=== PATIENT | female | born 1990 | race Caucasian/White ===

== ENCOUNTER 2016-05-20 12:06 | Emergency (ER) | payer OTHER ==
[~2016-05-20] VITALS: Ht 160 cm; Wt 104.3 kg
[~2016-05-20 12:06] MED LIST: CYCLOBENZAPRINE10 M1 PO; MEDROL4 M2 PO; TRAMADOL HCL50 M1 PO; ZOFRAN ODT4 M1 PO
[2016-05-20] MEDS ORDERED: BIOTIN2500 MCG PO (12:48)
--- NOTE | 2016-05-20 12:48 | ED INFLUENZA/URI COMPLAINT ---
History of Present Illness General Chief Complaint: Upper Respiratory Sx/Fever Stated Complaint: URI Source: patient, old records Exam Limitations: no limitations Vital Signs & Intake/Output Vital Signs & Intake/Output Vital Signs Date Time Temp Pulse Resp B/P Pulse O2 O2 Flow FiO2 Ox Delivery Rate 05/20 1347 97.3 105 18 164/96 99 Room Air 05/20 1300 Room Air 05/20 1227 97.7 91 16 156/90 97 Room Air Allergies Coded Allergies: mushroom (HIVES 05/20/16) Uncoded Allergies: METALS (Severe, ILIA WITH C-SECT DEHISCENT 01/19/16) Reconcile Medications Amoxicillin 500 MG TABLET 1 TAB PO BID URI Biotin (Unknown Strength) CAPSULE (Unknown Dose) PO DAILY SUPPLEMENT ( Reported) Robitussin AC (Guaifenesin-Codeine Syrup) 200 MG-20 MG/10 ML LIQUID 10 ML PO Q6HR PRN COUGH Triage Note: 26 Y/O FEMALE C/O URI SYMPTOMS X 1 MONTH. STATES SHE HAS BEEN COUGHING WITH "YELLOW" SPUTUM. ALSO C/O INTERMITTENT FEVERS. REPORTS INTERMITTENT DECREASED APPETITE/PO INTAKE. AFEBRILE. Triage Nurses Notes Reviewed? yes Onset: Gradual Duration: week(s): (4), constant, waxing and waning Timing: recent history Severity: mild, moderate Severity Numbers: 5 Prior Episodes/Possible Cause: occassional episodes No Modifying Factors: none Associated Symptoms: nasal congestion, nasal drainage : No Patient currently breastfeeds: No HPI: 26-year-old female presents emergency room today for evaluation complaining of upper respiratory symptoms for the past 1 month. She's had a productive cough of yellow sputum and has been around multiple sick contacts at her [facility] with similar symptoms. She is also pulling to congestion and rhinorrhea and subjective fevers. She denies shortness of breath chest pain pain with inspiration. Pain nausea vomiting diarrhea. No sore throat no rashes to her skin. She's been using [id number] medications without improvement. She does not smoke. She has not sought care for the symptoms until today. There are no other modifying factors or associated symptoms otherwise. Patient's last menstrual cycle was April 14 she was scheduled to have her next cycle on May 12 (CJ JENKINS) Past History Travel History Traveled to [place] past 21 day No Medical History Any Pertinent Medical History? none Neurological: NONE EENT: NONE Cardiovascular: NONE Respiratory: NONE Gastrointestinal: NONE Hepatic: NONE Renal: NONE Musculoskeletal: chronic back pain, disk herniation Psychiatric: NONE Endocrine: NONE Blood Disorders: NONE Cancer(s): NONE PRODUCTION ASSISTANT/Reproductive: NONE Surgical History Surgical History: non-contributory Psychosocial History What is your primary language Swedish Tobacco Use: Never used Family History Hx Contributory? No (CJ JENKINS) Review of Systems Review of Systems Constitutional: Reports: see HPI. All Other Systems: Reviewed and Negative Comments Review of systems: See HPI, All other systems negative. Constitutional, no chills no fever, no malaise HEENT: No visual changes no sore throat congestion Cardiovascular: No chest pain , no palpitation Skin,no rashes, no change in skin Respiratory: No dyspnea cough no sputum GI: No nausea no vomiting, no diarrhea : No dysuria Muscle skeletal: No joint pain, no joint swelling, no back pain, no neck pain, Neurologic: No numbness no confusion, no headache Psych: No stress Heme/endocrine: No bruising no bleeding Immunology: No lymphadenopathy (CJ JENKINS) Physical Exam Physical Exam General Appearance: well developed/nourished, no apparent distress, alert, awake , comfortable Ears, Nose, Throat: moist mucous membrane, hearing grossly normal, Tympanic normal, pharynx normal, nasal congestion Comments: Well-developed well-nourished patient in no apparent distress. Head/Face: Atraumatic, no maxillary/frontal sinus tenderness, no facial swelling Eyes: PERRL, EOMI, no conjunctival injection. No nystagmus Ear:External auditory canal and Tympanic membranes clear, no erythema, no FB. Nose: atraumatic.Normal inspection: No bleeding, no septal hematoma Throat: Moist mucous membranes.Pharynx normal. No pharyngeal erythema/exudate seen. No stridor/drooling or assymetry. No swelling or edema. Neck: Supple, FROM Back: FROM Cardiovascular: Regular rate and rhythms no murmurs rubs Respiratory: Chest nontender.There were no bony deformities, no asymmetry. No respiratory distress. Patient speaking in full complete sentences. Breath sounds clear to auscultation bilaterally: NO W/R/R Extremities: full range of motion Neuro: Alert and oriented x3 Skin: Warm & dry;No appreciable rash on exposed skin Psych: Mood affect normal, normal memory normal judgment. Core Measures Severe Sepsis Present: No Septic Shock Present: No (CJ JENKINS) Progress Differential Diagnosis: influenza, otitis, pneumonia, pharyngitis, sinusitis, BRONCHITIS Plan of Care: Orders Procedure Date/time Status URINE 05/20 1308 Complete Laboratory Tests 05/20/16 1312: Urine Test POSITIVE Discussed with the patient her results. She denies any abdominal pain vaginal bleeding or discharge this is her fourth . The patient just moved to this area and does not have an coat joiner set up yet. Again the patient however denies any pain discussed with her given her symptoms need for supportive care Tylenol as needed. Prescription for amoxicillin and Robitussin with codeine were provided she will follow up with copper etcher on Monday she'll return anytime sooner with any concerns answered all of her questions they feel comfortable with this plan clear discharge (CJ JENKINS) Initial ED EKG: none (CJ JENKINS) Departure Departure Time of Disposition: 1335 Disposition: HOME OR SELF CARE Condition: Stable Clinical Impression Primary Impression: Bronchitis Secondary Impressions: Referrals: JAYA SHANNON,KENNY Rucker PATIENT HAS NO PRIMARY CARE DR (PCP/Family) Additional Instructions: Follow-up with your primary care physician. Robitussin with codeine for cough use caution as this may make you drowsy. Amoxicillin as directed return with any concerns. These prescriptions were sent to your pharmacy Follow-up with coat joiner Kenny López MD on Monday, return anytime sooner with any concerns: Abdominal pain vaginal bleeding discharge or any other concerns Departure Forms: Customer Survey General Discharge Information Prescriptions: Current Visit Scripts Amoxicillin 1 TAB PO BID #14 TAB Robitussin AC (Guaifenesin-Codeine Syrup) 10 ML PO Q6HR PRN COUGH #200 ML (CJ JENKINS) PA/POWER LINE INSTALLER Co-Sign Statement Statement: ED Attending supervision documentation- [] I saw and evaluated the patient. I have also reviewed all the pertinent lab results and diagnostic results. I agree with the findings and the plan of care as documented in the PA's/POWER LINE INSTALLER's documentation. [X] I have reviewed the ED Record and agree with the PA's/POWER LINE INSTALLER's documentation. [] Additions or exceptions (if any) to the PAs/POWER LINE INSTALLER's note and plan are summarized below: [] (BETSY SHARP DO)
[2016-05-20] MEDS ORDERED: AMOXICILLIN500 M3 PO ×2 (13:37→16:56)
[2016-05-20] MEDS ORDERED: GUAIFENESIN-COD10 ML PO ×3 (13:37→16:58)
[2016-05-20 13:47] VITALS: BP 164/96
== END 2016-05-20 13:53 ==
LOC: ERH 12:06
DX: O99.511 Diseases of the respiratory system complicating pregnancy, first trimester (principal); J40 Bronchitis, not specified as acute or chronic
CPT/HCPCS: 81025

== ENCOUNTER 2016-07-01 09:18 | Emergency (ER) | payer OTHER ==
[~2016-07-01] VITALS: Ht 160 cm; Wt 103.4 kg
[~2016-07-01 09:18] MED LIST changes: +AMOXICILLIN500 M3 PO; +BIOTIN2500 MCG PO; +GUAIFENESIN-COD10 ML PO
--- NOTE | 2016-07-01 09:42 | ED INFLUENZA/URI COMPLAINT ---
History of Present Illness General Chief Complaint: General Adult Stated Complaint: FLU LIKE SYMPTOMS Source: patient Exam Limitations: no limitations Vital Signs & Intake/Output Vital Signs & Intake/Output Vital Signs Date Time Temp Pulse Resp B/P Pulse O2 O2 Flow FiO2 Ox Delivery Rate 07/01 0924 97.7 96 20 126/86 98 Room Air Allergies Coded Allergies: mushroom (HIVES 05/20/16) Uncoded Allergies: METALS (Severe, ILIA WITH C-SECT DEHISCENT 01/19/16) Reconcile Medications Amoxicillin 500 MG TABLET 1 TAB PO BID URI Amoxicillin 500 MG TABLET 1 TAB PO BID uri Biotin (Unknown Strength) CAPSULE (Unknown Dose) PO DAILY SUPPLEMENT ( Reported) Ondansetron (Zofran Odt) 4 MG TAB.RAPDIS 1 TAB PO Q6 PRN NAUSEA Robitussin AC (Guaifenesin-Codeine Syrup) 200 MG-20 MG/10 ML LIQUID 10 ML PO Q6HR PRN COUGH Robitussin AC (Guaifenesin-Codeine Syrup) 200 MG-20 MG/10 ML LIQUID 10 ML PO Q6HR PRN COUGH Robitussin AC (Guaifenesin-Codeine Syrup) 200 MG-20 MG/10 ML LIQUID 10 ML PO Q6HR PRN COUGH Triage Note: PT STATES SHE IS 10 WEEKS AND NOW HAVING N/V/D BODYACHES, CHILLS SINCE LAST NIGHT. PT STATES A LITTLE ABDOMINAL PAIN. PT DENIES VAGINAL BLEEDING OR PROBLEMS WITH . LAST OB APPT WITH [facility] 06/22/16 Triage Nurses Notes Reviewed? yes Onset: Abrupt Duration: 12 HRS Timing: multiple episodes today Severity: severe Modifying Factors: Worsens With: eating. Associated Symptoms: ABDOMINAL PAIN, NAUSEA, VOMITING, DIARRHEA : Yes Patient currently breastfeeds: No HPI: This is a 26-year-old female at 10 weeks gestation presents to the chief complaint of nausea vomiting diarrhea that began last night. She states she was vomiting twice an hour. She had 4 episodes of diarrhea. Non-bilious nonbloody vomiting. No vaginal bleeding or discharge. Patient is really followed up with this and had a diagnosis of an intrauterine on ultrasound. Positive sick contacts at home with similar symptoms. 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 Denies any fever or chills. Denies any abdominal pain. Past History Travel History Traveled to [place] past 21 day No Medical History Any Pertinent Medical History? see below for history Neurological: NONE EENT: NONE Cardiovascular: NONE Respiratory: NONE Gastrointestinal: NONE Hepatic: NONE Renal: NONE Musculoskeletal: chronic back pain, disk herniation Psychiatric: NONE Endocrine: NONE Blood Disorders: NONE Cancer(s): NONE DIRECT OF REAL ESTATE/Reproductive: NONE Surgical History Surgical History: non-contributory Psychosocial History What is your primary language Uzbek Tobacco Use: Never used ETOH Use: denies use Illicit Drug Use: denies illicit drug use Family History Hx Contributory? No Review of Systems Review of Systems Constitutional: Denies: chills, fever. EENTM: Reports: no symptoms. Respiratory: Denies: cough, short of breath. Cardiovascular: Denies: chest pain. GI: Reports: diarrhea, nausea, vomiting. Denies: abdominal pain. Genitourinary: Reports: no symptoms. Musculoskeletal: Reports: no symptoms. Skin: Reports: no symptoms. Neurological/Psychological: Reports: no symptoms. Hematologic/Endocrine: Denies: bruising, bleeding, polyuria, polydipsia. Immunologic/Allergic: Denies: splenectomy. All Other Systems: Reviewed and Negative Physical Exam Physical Exam General Appearance: well developed/nourished, alert, awake, mild distress, obese Head: atraumatic, normal appearance Eyes: Bilateral: normal appearance, PERRL, EOMI. Ears, Nose, Throat: normal ENT inspection, moist mucous membrane Neck: normal inspection, supple, full range of motion Respiratory: normal breath sounds, chest non-tender, no respiratory distress Cardiovascular: regular rate/rhythm Peripheral Pulses: 2+ radial (R), 2+ radial (L) Gastrointestinal: normal bowel sounds, soft, non-tender Extremities: normal inspection, normal capillary refill, normal range of motion, no edema Neurologic/Psych: no motor/sensory deficits, awake, alert, oriented x 3 Skin: intact, normal color, warm/dry Core Measures Severe Sepsis Present: No Septic Shock Present: No Progress Differential Diagnosis: GASTROENTERITIS, HYPEREMESIS, HELADIO, DEHYDRATION Plan of Care: Orders Procedure Date/time Status RAPID VIRAL INFLUENZA A 07/01 950 Complete COMPREHENSIVE METABOLIC PANEL 07/01 948 Complete CBC WITHOUT DIFFERENTIAL 07/01 948 Complete ACETONE 07/01 948 Complete URINE 07/01 928 Complete URINALYSIS 07/01 928 Complete Current Medications Sig/Miguel Start time Last Medication Dose Stop Time Status Admin Sodium Chloride 1,000 ML BOLUS ONE 07/01 1115 AC (Normal Saline 0.9%) 07/01 1214 Laboratory Tests 07/01/16 1019: Anion Gap 11, Estimated GFR > 60, BUN/Creatinine Ratio 18.3, Glucose 79, Calcium 8.9, Total Bilirubin 0.4, AST 17, ALT 24, Alkaline Phosphatase 21, Total Protein 6.6, Albumin 3.7, Globulin 2.9, Albumin/Globulin Ratio 1.3, CBC w Diff NO MAN DIFF REQ, RBC 4.92, MCV 86.4, MCH 29.1, RDW 14.2, MPV 9.5, Gran % 88.9 H, Lymphocytes % 5.6 L, Monocytes % 4.0, Eosinophils % 1.5, Basophils % 0 L, Absolute Granulocytes 10.1 H, Absolute Lymphocytes 0.6 L, Absolute Monocytes 0.5, Absolute Eosinophils 0.2, Absolute Basophils 0, PUBS MCHC 33.7, Acetone Level NEGATIVE 07/01/16 0958: Urinalysis LIGHT H, Urine Color YEL, Urine Clarity HAZY H, Urine pH 8.0, Ur Specific [place] 1.015, Urine Protein TRACE H, Urine Ketones NEG, Urine Nitrite NEG, Urine Bilirubin NEG, Urine Urobilinogen 0.2, Ur Leukocyte Esterase NEG, Ur Microscopic SEDIMENT EXAMINED, Urine RBC 1-3, Urine WBC 1-3 H, Ur Epithelial Cells MOD H, Urine Mucus FEW, Urine Hemoglobin NEG, Urine Glucose NEG, Urine Test POSITIVE Microbiology 07/01 1015 NASOPHARYN: Influenza Virus A & B Rapid Smear - COMP Patient presents with acute nausea vomiting diarrhea, sick contacts at home with similar symptoms. She is currently 10 weeks gestation. No abdominal pain vaginal discharge or bleeding. Patient feeling better after IV fluids 3L, antiemetics. Tolerating PO well. She will follow up with her OBGyn doctor. (ABILIO SHANNON,ARIA) Initial ED EKG: normal intervals Departure Departure Disposition: HOME OR SELF CARE Condition: Stable Clinical Impression Primary Impression: Gastroenteritis Secondary Impressions: Referrals: PATIENT HAS NO PRIMARY CARE DR (PCP/Family) Additional Instructions: Take Zofran as needed for nausea. Clear liquids and advance your diet as tolerated. Please continue your vitamins and follow-up with her [employer] doctor. Return to the ER for any changing or worsening symptoms. Departure Forms: Customer Survey General Discharge Information Prescriptions: Current Visit Scripts Ondansetron (Zofran Odt) 1 TAB PO Q6 PRN NAUSEA #20 TAB
[2016-07-01 10:28] LABS: ABSOLUTE BASOPHIL COUNT 0 /CUMM (0.0-0.2); ABSOLUTE EOSINOPHIL COUNT 0.2 /CUMM (0.0-0.7); ABSOLUTE GRANULOCYTE CT 10.1 /CUMM (1.4-6.5); ABSOLUTE LYMPH COUNT 0.6 /CUMM (1.2-3.4); ABSOLUTE MONOCYTE COUNT 0.5 /CUMM (0.10-0.60); BASOPHIL % 0 % (0.0-2.0); EOSINOPHIL % 1.5 % (0-5); HEMATOCRIT 42.5 % (37-47); MEAN CORPUSCULAR HGB 29.1 PG (27.0-31.0); MEAN CORPUSCULAR HGB CONC 33.7 G/DL (33.0-37.0); MEAN CORPUSCULAR VOLUME 86.4 FL (81.0-99.0); MEAN PLATELET VOLUME 9.5 FL (7.4-10.4); PLATELET COUNT 149 /CUMM (130-400); RBC DISTRIBUTION WIDTH 14.2 % (11.5-14.5); RED BLOOD CELL CT 4.92 /CUMM (4.20-5.40); WHITE BLOOD CELL COUNT 11.4 /CUMM (4.8-10.8)
[2016-07-01 10:41] LABS: GRANULOCYTE % 88.9 % (42.2-75.2)
[2016-07-01] MEDS ORDERED: ZOFRAN ODT4 M1 PO (11:45)
[2016-07-01 12:11] VITALS: BP 118/72
== END 2016-07-01 12:12 ==
LOC: ERH 09:18
PROVIDERS: Emergency Medicine
DX: O99.611 Diseases of the digestive system complicating pregnancy, first trimester (principal)
CPT/HCPCS: 81001; 81025; 87804; 87804-59; 96361; 96374; J2405

== ENCOUNTER 2017-09-16 16:32 | Emergency (ER) | payer OTHER ==
[~2017-09-16] VITALS: Ht 160 cm; Wt 113.4 kg
[~2017-09-16 16:32] MED LIST changes: +IBUPROFEN800 M1 PO; +PERCOCET 5-3251 EACH PO; +PREDNISONE10 M2 PO; +ROBAXIN500 M1 PO
[2017-09-16] MEDS ORDERED: NAPROSYN500 M1 PO (18:13)
[2017-09-16] MEDS ORDERED: CYCLOBENZAPRINE5 M2 PO (18:13)
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
[2017-09-16 18:22] VITALS: BP 154/92
== END 2017-09-16 18:22 ==
LOC: ERH 16:32
DX: M62.830 Muscle spasm of back (principal)

== ENCOUNTER 2017-11-09 17:46 | Emergency (ER) | payer OTHER ==
[~2017-11-09] VITALS: Ht 160 cm; Wt 117.9 kg
[~2017-11-09 17:46] MED LIST changes: +CYCLOBENZAPRINE5 M2 PO; +NAPROSYN500 M1 PO
[2017-11-09 18:32] LABS: ABSOLUTE BASOPHIL COUNT 0 /CUMM (0.0-0.2); ABSOLUTE EOSINOPHIL COUNT 0.2 /CUMM (0.0-0.7); ABSOLUTE LYMPH COUNT 2.2 /CUMM (1.2-3.4); ABSOLUTE MONOCYTE COUNT 0.8 /CUMM (0.10-0.60); BASOPHIL % 0.3 % (0.0-2.0); EOSINOPHIL % 1.9 % (0-5); GRANULOCYTE % 73.7 % (42.2-75.2); HEMATOCRIT 40.1 % (37-47); MEAN CORPUSCULAR HGB CONC 33.8 G/DL (33.0-37.0); MEAN CORPUSCULAR VOLUME 82.7 FL (81.0-99.0); MEAN PLATELET VOLUME 9.8 FL (7.4-10.4); PLATELET COUNT 208 /CUMM (130-400); RBC DISTRIBUTION WIDTH 14.7 % (11.5-14.5); RED BLOOD CELL CT 4.85 /CUMM (4.20-5.40); WHITE BLOOD CELL COUNT 12.2 /CUMM (4.8-10.8)
--- NOTE | 2017-11-09 18:40 | ED GI/GU/ABDOMINAL COMPLAINT ---
History of Present Illness General Chief Complaint: Abdominal Pain/Flank Pain Stated Complaint: ABDOMINAL PAIN Source: patient, old records Exam Limitations: no limitations Vital Signs & Intake/Output Vital Signs & Intake/Output Vital Signs Date Time Temp Pulse Resp B/P B/P Pulse O2 O2 Flow FiO2 Mean Ox Delivery Rate 11/09 1948 98.3 93 18 160/89 98 Room Air 11/09 1749 99.1 116 20 182/83 98 Room Air Allergies Coded Allergies: mushroom (HIVES 09/16/17) Uncoded Allergies: METALS (Severe, ILIA WITH C-SECT DEHISCENT 01/19/16) Reconcile Medications Ciprofloxacin HCl (Cipro) 500 MG TABLET 1 TAB PO BID diverticulitis Cyclobenzaprine HCl 5 MG TABLET 1 TAB PO TIDPRN MUSCLE SPASM Methocarbamol (Robaxin) 500 MG TABLET 1 TAB PO TID PRN MUSCLE SPASMS Metronidazole (Flagyl) 500 MG TABLET 1 TAB PO TID diverticulitis Naproxen (Naprosyn) 500 MG TABLET 1 TAB PO BID PRN PAIN Ondansetron (Zofran Odt) 4 MG TAB.RAPDIS 1 TAB SL TID PRN nausea Oxycodone HCl/Acetaminophen (Percocet 5-325 MG Tablet) 5 MG-325 MG TABLET 1 TAB PO BID PRN pain Prednisone 10 MG TABLET 1 TAB PO DAILY BACK PAIN 3 TABS PO X 3 DAYS, 2 TABS PO X 3 DAYS, 1 TAB PO X 3 DAYS Triage Note: PT TO ED C/O LLQ PAIN X A FEW DAYS, WORSE TODAY. PAIN IS CONSTANT, C/O NAUSEA, DENIES V/D. DENIES S/S. PT RECENTLY TREATED FOR VAGINITIS AND CANDIDIASIS OF VULVA AND VAGINA. Triage Nurses Notes Reviewed? yes ? n Is pt currently ? No Onset: Gradual Duration: day(s): Timing: recent history Quality/Severity: severe Severity Numbers: 10 Location: left lower quadrant Last Time You Were Sexual: greater than 2 months ago HPI: 27yo female presents emergency department complaining of severe abdominal pain. Patient states she has had left lower quadrant abdominal pain for the past 3 days however early this morning abdominal pain became severe, 10/10, sharp. Patient has no history of a similar pain in the past. Patient reports associated nausea. Last bowel movement was 2 hours ago and normal. 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 Patient denies vaginal discharge at this time. Patient denies dysuria, diarrhea , skin rash, fevers, vomiting. Patient states she is not currently sexually active, has not been active for over 2 months. (Keke Block) Past History Travel History Traveled to [place] past 21 day No Medical History Any Pertinent Medical History? see below for history Neurological: NONE EENT: NONE Cardiovascular: NONE Respiratory: NONE Gastrointestinal: NONE Hepatic: NONE Renal: NONE Musculoskeletal: chronic back pain, disk herniation Psychiatric: NONE Endocrine: NONE Blood Disorders: NONE Cancer(s): NONE AVIONICS MECHANIC/Reproductive: yeast infections Surgical History Surgical History: non-contributory Psychosocial History What is your primary language Portuguese Tobacco Use: Never used ETOH Use: denies use Illicit Drug Use: denies illicit drug use Family History Hx Contributory? No (Keke Block) Review of Systems Review of Systems Constitutional: Reports: no symptoms. EENTM: Reports: no symptoms. Respiratory: Reports: no symptoms. Cardiovascular: Reports: no symptoms. GI: Reports: see HPI. Genitourinary: Reports: see HPI. Musculoskeletal: Reports: no symptoms. Skin: Reports: no symptoms. Neurological/Psychological: Reports: no symptoms. Hematologic/Endocrine: Reports: no symptoms. Immunologic/Allergic: Reports: no symptoms. All Other Systems: Reviewed and Negative (Keke Block) Physical Exam Physical Exam General Appearance: well developed/nourished, no apparent distress, alert, awake Head: atraumatic, normal appearance Eyes: Bilateral: normal appearance. Ears, Nose, Throat, Mouth: hearing grossly normal Neck: normal inspection, supple, full range of motion Respiratory: normal breath sounds, no respiratory distress, lungs clear Cardiovascular: regular rate/rhythm Gastrointestinal: normal bowel sounds, soft, no organomegaly, LLQ tenderness Back: normal inspection, normal range of motion Extremities: normal range of motion Neurologic/Psych: awake, alert, oriented x 3 Skin: intact, normal color, warm/dry Core Measures ACS in differential dx? No Sepsis Present: No Sepsis Focused Exam Completed? No (Keke Block) Progress Differential Diagnosis: appendicitis, bowel obstruction, diverticulitis, gastritis, hernia, inflamm bowel dis, kidney stone, ovarian cyst, PID/cervicitis , SBO, UTI/pyelo Plan of Care: Orders Procedure Date/time Status URINE 11/09 1748 Complete URINALYSIS 11/09 1748 Complete LIPASE 11/09 1748 Complete COMPREHENSIVE METABOLIC PANEL 11/09 1748 Complete CBC WITHOUT DIFFERENTIAL 11/09 1748 Complete Laboratory Tests 11/09/17 1851: Urine Color YEL, Urine Clarity CLEAR, Urine pH 6.5, Ur Specific [place] 1.020, Urine Protein TRACE H, Urine Ketones NEG, Urine Nitrite NEG, Urine Bilirubin NEG, Urine Urobilinogen 0.2, Ur Leukocyte Esterase NEG, Ur Microscopic SEDIMENT EXAMINED, Urine RBC RARE, Urine WBC RARE, Ur Epithelial Cells MOD H, Urine Bacteria MOD H, Urine Mucus FEW, Urine Hemoglobin TRACE-INTACT, Urine Glucose NEG, Urine Test NEGATIVE 11/09/17 1825: Anion Gap 13, Estimated GFR > 60, BUN/Creatinine Ratio 16.3, Glucose 124 H, Calcium 9.5, Total Bilirubin 0.2, AST 22, ALT 39, Alkaline Phosphatase < 20, Total Protein 7.1, Albumin 4.1, Globulin 3.0, Albumin/Globulin Ratio 1.4, Lipase 116, CBC w Diff NO MAN DIFF REQ, RBC 4.85, MCV 82.7, MCH 28.0, MCHC 33.8, RDW 14.7 H, MPV 9.8, Gran % 73.7, Lymphocytes % 17.8 L, Monocytes % 6.3, Eosinophils % 1.9, Basophils % 0.3, Absolute Granulocytes 9.0 H, Absolute Lymphocytes 2.2, Absolute Monocytes 0.8 H, Absolute Eosinophils 0.2, Absolute Basophils 0 Labs show mild leukocytosis. Abdominal scan is pending. CT scan shows evidence of diverticulitis. Patient is laying in stretcher in no acute distress. She does feel some relief following IV pain medications. No active vomiting. Patient states she feels as though she could eat something. Will initiate antibiotics and pain medications. The patient was given strict return precautions. She understands the diagnosis. The patient agrees with the plan of care. Diagnostic Imaging: Viewed by Me: CT Scan. Discussed w/RAD: CT Scan. Radiology Impression: PATIENT: MALINDA TESFAYE PRESENT AGE: 27 PATIENT ACCOUNT NO: [id number] : 88 LOCATION: [facility] ORDERING PHYSICIAN: Keke MITCHELL SERVICE DATE: 11/09/17 EXAM TYPE: CAT - CT ABD & PELVIS W IV CONTRAST EXAMINATION: CT ABDOMEN AND PELVIS WITH CONTRAST CLINICAL INFORMATION: Left lower quadrant pain and nausea. COMPARISON: None available. TECHNIQUE: Multidetector volumetric imaging was performed of the abdomen and pelvis following IV administration of 95 mL of Optiray 320 intravenous contrast. Sagittal and coronal reformatted images were obtained on the technologist's workstation. FINDINGS: The lung bases are clear. There is diffuse hepatic steatosis. The spleen, adrenal glands, gallbladder, and pancreas are normal. The kidneys exhibit symmetric nephrograms without evidence of hydronephrosis. There are a few punctate nonobstructing calculi within the left kidney. There are bilateral renal cysts. There are inflammatory changes adjacent to a diverticulum projecting inferiorly from the proximal sigmoid colon which is focally thick-walled, compatible with acute diverticulitis. There is a small peripherally enhancing structure within the left ovary which is located just below the inflammatory changes discussed above with the peripherally enhancing structure most likely reflect a corpus luteum cyst. No pelvic adenopathy. No free fluid within the pelvis. There are no acute osseous abnormalities. No significant soft tissue abnormality. IMPRESSION: - Acute diverticulitis involving the proximal sigmoid colon. No free air. - There is a small peripherally enhancing structure within the left ovary which is located just below the inflammatory changes discussed above with the peripherally enhancing structure most likely reflecting a corpus luteum cyst. - There are a few punctate nonobstructing calculi within the left kidney. DICTATED BY: Jemal Samuels MD DATE/TIME DICTATED:11/09/171953 CLOSING AGENT:BALJIT DATE/TIME TRANSCRIBED:11/09/171953 CONFIDENTIAL, DO NOT COPY WITHOUT APPROPRIATE AUTHORIZATION. <Electronically signed in Other Vendor System> SIGNED BY: Jemal Samuels MD 11/09/172007 Initial ED EKG: none (Corin MITCHELL,Keke Justice) Departure Departure Condition: Stable Clinical Impression Primary Impression: Diverticulitis Secondary Impressions: Abdominal pain Qualifiers: Abdominal location: left lower quadrant Qualified Code: R10.32 - Left lower quadrant pain Nausea Referrals: Nell SHANNON,Margo Rodrigues (PCP/Family) Additional Instructions: Take full course of antibiotics. Take Percocet as prescribed as needed for pain.. Return with worsening symptoms or concerns. Take Zofran as prescribed as needed for nausea. Please note that there might be incidental findings in your evaluation that are unrelated to the current emergency department visit. Please notify your primary care doctor about this emergency department visit in order to obtain and review all of the testing performed so that these incidental findings can be monitored as needed. If you had an x-ray performed, please understand that some fractures may not be seen on the initial set of x-rays. If your symptoms persist you might need a repeat set of x-rays to check for such a fracture. If you had a laceration evaluated, please understand that foreign bodies such as glass or wood may not be visible to the naked eye or on plain x-rays. If the wound becomes red, swollen, increasingly more painful or if there is any drainage from the wound, please have it reevaluated by a physician for the possibility of a retained foreign body. If you're unable to follow up as outlined in the discharge instructions please return to the emergency department. Thank you for choosing the [facility] Emergency Department for your care. It was a pleasure to serve you today. Departure Forms: Customer Survey General Discharge Information Prescriptions: Current Visit Scripts Ondansetron (Zofran Odt) 1 TAB SL TID PRN nausea #10 TAB Oxycodone HCl/Acetaminophen (Percocet 5-325 MG Tablet) 1 TAB PO BID PRN pain #10 TAB Metronidazole (Flagyl) 1 TAB PO TID #30 TAB Ciprofloxacin HCl (Cipro) 1 TAB PO BID #20 TAB (Keke Block) Departure Disposition: HOME OR SELF CARE PA/FOOD TRADES ASSISTANTS Co-Sign Statement Statement: ED Attending supervision documentation- I saw and evaluated the patient. I have also reviewed all the pertinent lab results and diagnostic results. I agree with the findings and the plan of care as documented in the PA's/FOOD TRADES ASSISTANTS's documentation. x I have reviewed the ED Record and agree with the PA's/FOOD TRADES ASSISTANTS's documentation. [] Additions or exceptions (if any) to the PAs/FOOD TRADES ASSISTANTS's note and plan are summarized below: [] (Suyapa SHANNON,Tong)
[2017-11-09 19:49] VITALS: BP 160/89
--- NOTE | 2017-11-09 20:08 | CT SCAN REPORT ---
EXAMINATION: CT ABDOMEN AND PELVIS WITH CONTRAST CLINICAL INFORMATION: Left lower quadrant pain and nausea. COMPARISON: None available. TECHNIQUE: Multidetector volumetric imaging was performed of the abdomen and pelvis following IV administration of 95 mL of Optiray 320 intravenous contrast. Sagittal and coronal reformatted images were obtained on the technologist's workstation. FINDINGS: The lung bases are clear. There is diffuse hepatic steatosis. The spleen, adrenal glands, gallbladder, and pancreas are normal. The kidneys exhibit symmetric nephrograms without evidence of hydronephrosis. There are a few punctate nonobstructing calculi within the left kidney. There are bilateral renal cysts. There are inflammatory changes adjacent to a diverticulum projecting inferiorly from the proximal sigmoid colon which is focally thick-walled, compatible with acute diverticulitis. There is a small peripherally enhancing structure within the left ovary which is located just below the inflammatory changes discussed above with the peripherally enhancing structure most likely reflect a corpus luteum cyst. No pelvic adenopathy. No free fluid within the pelvis. There are no acute osseous abnormalities. No significant soft tissue abnormality. IMPRESSION: - Acute diverticulitis involving the proximal sigmoid colon. No free air. - There is a small peripherally enhancing structure within the left ovary which is located just below the inflammatory changes discussed above with the peripherally enhancing structure most likely reflecting a corpus luteum cyst. - There are a few punctate nonobstructing calculi within the left kidney.
[2017-11-09] MEDS ORDERED: PERCOCET 5-3251 EACH PO (20:09)
[2017-11-09] MEDS ORDERED: ZOFRAN ODT4 M1 SL (20:09)
[2017-11-09] MEDS ORDERED: CIPRO500 M1 PO (20:10)
[2017-11-09] MEDS ORDERED: FLAGYL500 MG PO (20:10)
== END 2017-11-09 20:36 ==
LOC: ERH 17:46
PROVIDERS: Physician Assistant
DX: K57.92 Diverticulitis of intestine, part unspecified, without perforation or abscess without bleeding (principal); R10.32 Left lower quadrant pain; R11.0 Nausea
CPT/HCPCS: 74177; 81001; 81025; 96374; 96375; J1885; J2405